=== PATIENT | male | born 1960 | race African-American/Black ===

== ENCOUNTER → 2019-12-09 07:57 | Outpatient (CLI) | payer MEDICARE, BC, SELFPAY ==
[2019-12-09] VITALS (7 sets, daily range): BP systolic 129–180; BP diastolic 68–84; PULSE 79–91; RESP 16; TEMP 36.3–37.2; O2SAT 94–100; BMI 25.1
== END ==
PROVIDERS: Referring Provider Internal Medicine Nephrology; Visit Provider Internal Medicine Nephrology
DX: D64.9 Anemia, unspecified (principal)
CPT/HCPCS: 36415; 36430; 86850; 86900; 86901; 86920; 86922; J7040; P9016; A4216

== ENCOUNTER → 2019-12-17 11:15 | Outpatient (CLI) | payer MEDICARE, BC, SELFPAY ==
[2019-12-09 08:08] VITALS: BMI 25.1
== END ==
LOC: MTDU 11:16
PROVIDERS: PCP Family Medicine; Referring Provider Internal Medicine Gastroenterology; Visit Provider Internal Medicine Gastroenterology
DX: Z11.59 Encounter for screening for other viral diseases (principal)
CPT/HCPCS: 87635; 94799; U0003

== ENCOUNTER 2020-07-03 15:27 | Emergency (ER) | payer MEDICARE, BC, SELFPAY ==
[2019-12-09 08:08] VITALS: BMI 25.1
[2020-07-03 15:28] VITALS: BP 225/120; PULSE 121; RESP 29; TEMP 36.8; O2SAT 95; BMI 22.3
[2020-07-03 15:36] LABS: Bedside Glucose 151 mg/dL (70-110)
--- NOTE | 2020-07-03 15:52 | ED.DCSUM_ITS ---
History of Present Illness Chief Complaint: Nausea/Vomiting Informant: Patient Onset: Today Context: Sudden Onset Timing: Continuous Current Severity: Moderate Maximum Severity: Moderate Narrative: The patient is a 59-year-old male with medical history significant for hypertension, end-stage renal disease on peritoneal dialysis, who presents to the emergency department from dialysis. The patient was diagnosed with peritonitis. He has been getting ceftaz infusions after he completes dialysis. He went to dialysis today and got his full treatment. He states that he had his antibiotics infused. He states that normally after he gets his antibiotics, he will have nausea and vomiting. He states that this causes his blood pressure to go very high. He denies fevers or chills. He states he has been evaluated multiple times for his vomiting. He states he was able to complete his treatment. He states he also some tingling in both of his feet which is since resolved. Prior similar symptoms: Yes Recent Illness/Hospitalization: Yes Past Medical History - Allergies and Home Meds Allergies/Adverse Reactions: Allergies No Known Allergies Allergy (Verified 12/09/19 08:12) Primary Care Physician: Beto Bernal MD [Primary Care Provider] - Prior records reviewed: Yes Past Medical History: - - End-stage renal disease, hypertension, diabetes Surgical History: - - Peritoneal dialysis catheter Smoking Status: Never smoker Review of Systems General: Denies: Chills, Fever, Sweats Eyes: Denies: Visual changes - bilaterally, Diplopia ENT: Denies: Rhinorrhea, Sore throat Cardiovascular: Denies: Chest pain, Palpitations Respiratory: Denies: Dyspnea, Cough, Dyspnea on exertion Gastrointestinal: Reports: Nausea, Vomiting. Denies: Abdominal pain, Diarrhea, Melena, Hematochezia Genitourinary: Denies: Dysuria, Hematuria, Frequency Musculoskeletal: Denies: Back pain, Extremity Pain Skin: Denies: Rash, Wounds Neurological: Denies: Headache, Weakness, Numbness Physical Exam Vital Signs/Narrative: Vital Signs Temp Pulse Resp BP Pulse Ox 07/03/20 15:28 98.2 F 121 H 29 H 225/120 H 95 Inital Vital Signs reviewed: Yes General: Well nourished, Well developed, No Acute Distress Head: Normocephalic, Atraumatic Eyes: Perrl, EOMI ENT: Moist mucous membranes, No rhinorrhea Neck: Supple, Nontender Cardiovascular: Regular rate, Regular rhythm, No murmurs Respiratory: No distress, CTA bilaterally, Chest nontender Abdomen: Soft, Nontender, Nondistended, Normal bowel sounds Back: Nontender, Normal Inspection Extremities: Nontender, No edema Skin: Normal color, No rash Neurological: Alert, Oriented x3, Cranial nerves II-XII grossly intact, Normal Strength, Normal Sensation Psychological: Normal affect, Normal Mood Diagnostic/Tx/Re-eval Abnormal Lab Results 07/03/20 07/03/20 07/03/20 15:33 15:48 15:48 WBC 8.4 RBC 4.09 L Hgb 11.4 L Hct 38.1 L MCV 93.2 MCH 27.9 MCHC 29.9 L RDW Std Deviation 54.0 H RDW Coeff of Sudhir 15.9 H Plt Count 353 MPV 11.2 Immature Gran % (Auto) 0.500 Neut % (Auto) 76.0 H Lymph % (Auto) 15.1 L [place] % (Auto) 6.7 Eos % (Auto) 1.0 Baso % (Auto) 0.7 Absolute Neuts (auto) 6.4 Absolute Lymphs (auto) 1.27 Nucleated RBC % 0 Sodium 134 L Potassium 3.7 Chloride 91 L Carbon Dioxide 26.0 Anion Gap 17 H BUN 35 H Creatinine 15.10 H* Estim Creat Clear Calc 5.19 Est GFR (MDRD) Af Amer 4 L Est GFR (MDRD) Non-Af 4 L BUN/Creatinine Ratio 2.3 L Glucose 235 H Calcium 9.8 Total Bilirubin 0.50 AST 12 L ALT 23 Alkaline Phosphatase 105 Total Protein 8.4 H Albumin 3.5 Globulin 4.9 H Albumin/Globulin Ratio 0.7 L POC Glucose 151 H - Medical Decision Making Patient presents with nausea and vomiting after his peritoneal dialysis. He states this is a recurrent issue especially when he gets his antibiotic infusions. His abdomen is soft and nontender. He is not had a fever. He is at 5 full days of treatment already. The patient is well-appearing. He was concerned about these paresthesias in his feet, but he has normal pulses, good cap refill, no skin breakdown. The patient was given Dilaudid and Reglan. He had marked improvement of his symptoms and is resting comfortably. His blood pressure and heart rate have improved. I did obtain screening labs. Patient has chronic anemia. He has no leukocytosis. His renal function is at his baseline. The patient's repeat blood pressure is 146/80. His heart rate is now 90. He is totally asymptomatic. At this point, I do feel that he is safe for discharge. Impression 1. Nausea vomiting 2. End-stage renal disease on dialysis ED Disposition - Plan for ED Patient: Instructions: ED Vomiting (Adult) Referrals: Beto Bernal MD [Primary Care Provider] -
[2020-07-03 16:03] LABS: Absolute Lymphocyte Count 1.27 X10^3/uL (0.83-4.51); Absolute Neutrophil Count 6.4 X10^3/uL (2.0-7.7); Basophil# 0.06 X10^3/uL; Basophil% 0.7 % (0-1); Eosinophil# 0.08 X10^3/uL; Hematocrit 38.1 % (40-54); Hemoglobin 11.4 g/dL (13.0-16.5); Lymphocyte # 1.27 X10^3/ul (4.0); Lymphocyte % 15.1 % (19-41); Mean Corp Hgb Conc 29.9 g/dL (32-36); Mean Corpuscular Hgb 27.9 pg (27.0-32.0); Mean Corpuscular Volume 93.2 fL (80-94); Mean Platelet Vol. 11.2 fl (6.2-12.0); Monocyte# 0.56 X10^3/uL; Monocyte% 6.7 % (0-10); NRBC Flagged by Analyzer 0 % (0-5); Platelet Count 353 K/mm3 (150-450); RBC Distribution Width CV 15.9 % (11.6-14.6); Red Blood Count 4.09 M/mm3 (4.6-6.2); White Blood Count 8.4 K/mm3 (4.4-11.0)
[2020-07-03] MEDS: Metoclopramide 10 MG/2 ML Vial IV (16:08)
[2020-07-03] MEDS: HYDROmorphone 1 MG/ML Syringe IV (16:08)
[2020-07-03 16:26] LABS: ALB/GLOB Ratio 0.7 RATIO (0.9-2.4); AST(SGOT) 12 U/L (15-37); Alanine Aminotransfer ALT/SGPT 23 U/L (16-61); Albumin, Serum 3.5 g/dL (3.2-5.0); Alkaline Phosphatase 105 U/L (45-117); Anion Gap 17 (5-15); BUN 35 mg/dL (7-18); BUN/Creat Ratio 2.3 RATIO (10-20); Calcium,Total 9.8 mg/dL (8.5-10.1); Chloride 91 mmol/L (98-107); EST Glomerular Filtration Rate 4 mL/min (>60); Est Glom Filt Rate - Afr Amer 4 mL/min (>60); Estimated Creatinine Clearance 5.19 ml/min; Globulin 4.9 g/dL (2.2-4.2); Glucose 235 mg/dL (74-106); Potassium 3.7 mmol/L (3.5-5.1); Protein, Total 8.4 g/dL (6.4-8.2); Sodium Level 134 mmol/L (136-145)
[2020-07-03 16:58] VITALS: BP 149/87; PULSE 100; RESP 13; O2SAT 96
== END 2020-07-03 17:20 | disposition home or self-care (01) ==
LOC: ED 16:07
PROVIDERS: Emergency Provider Emergency Medicine; PCP Family Medicine
DX: R11.2 Nausea with vomiting, unspecified (principal); I12.0 Hypertensive chronic kidney disease with stage 5 chronic kidney disease or end stage renal disease; E11.22 Type 2 diabetes mellitus with diabetic chronic kidney disease; N18.6 End stage renal disease; Z99.2 Dependence on renal dialysis
CPT/HCPCS: 80053; 82962; 85025; 96374; 96375; 99284

== ENCOUNTER 2021-06-25 09:26 | Emergency (ER) | payer MEDICARE, MEDICAID, SELFPAY ==
[2021-06-25 09:27] VITALS: BP 136/70; PULSE 62; RESP 18; TEMP 35.8; BMI 23.1
--- NOTE | 2021-06-25 10:02 | EX.ED.DYSGE1 ---
HPI History of Present Illness Chief Complaint: Hypotension Narrative Narrative: Patient is asymptomatic. He tells me he does not feel any different. He was transported to dialysis where he was found to have a low blood pressure. He was given a liter fluids and his blood pressure is now back to normal. He is denying any fevers chills cough or congestion. He has no abdominal pain. 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 He has not had any new issues with his foot no worsening pain or drainage or any other issues. He is denying shortness of breath. Today is Friday last dialysis was Friday. [facility] Medical History Anemia End stage renal disease Hyperparathyroidism Kidney disease Peritonitis Renal dialysis device, implant, or graft complication Home Medications B complex with C 20-folic acid [Nephrocaps] 1 cap PO DAILY 06/25/21 [History Last Taken Unknown] acetaminophen 1,000 mg PO Q8H PRN 06/25/21 [History Last Taken Unknown] amlodipine 5 mg PO DAILY 06/25/21 [History Last Taken Unknown] aspirin [Aspir-81] 81 mg PO DAILY 06/25/21 [History Last Taken Unknown] cilostazol 100 mg PO BID 06/25/21 [History Last Taken Unknown] clonidine HCl 0.1 mg PO TID 06/25/21 [History Last Taken Unknown] clopidogrel [Plavix] 75 mg PO DAILY 06/25/21 [History Last Taken Unknown] docusate sodium [Colace] 100 mg PO BID PRN PRN 06/25/21 [History Last Taken Unknown] ferric citrate 420 mg PO TID 06/25/21 [History Last Taken Unknown] gabapentin 300 mg PO QHS 06/25/21 [History Last Taken Unknown] insulin glargine [Lantus Solostar U-100 Insulin] 12 unit SUBCUT BREAKFAST 06/25/21 [History Last Taken Unknown] insulin lispro [Humalog Pen] 0 unit SUBCUT TID 06/25/21 [History Last Taken Unknown] labetalol 100 mg PO BID 06/25/21 [History Last Taken Unknown] nitroglycerin 0.4 mg SUBLINGUAL Q5M PRN 06/25/21 [History Last Taken Unknown] polyethylene glycol 3350 [Miralax] 17 g PO DAILY PRN PRN 06/25/21 [History Last Taken Unknown] tamsulosin 0.4 mg PO DAILY 06/25/21 [History Last Taken Unknown] Allergy/AdvReac Type Severity Reaction Status Date / Time No Known Allergies Allergy Verified 06/25/21 09:35 Social History Smoking Status: Never smoker ROS ROS ED ROS Narrative Past medical history: Reviewed, includes diabetes, hypertension, end-stage renal disease and peripheral vascular disease Medications: Reviewed Social history: Noncontributory Review of systems: All systems negative except as indicated General: No fever Eyes: No visual changes ENT: No upper airway congestion, normal voice Neck: No neck pain Cardiovascular: No chest pain Respiratory: No shortness of breath or cough Gastrointestinal: No abdominal pain, nausea vomiting or diarrhea Musculoskeletal: Right foot pain has not changed. Skin: No new rash Neurological: No memory loss, confusion or any focal weakness Psych: No recent behavioral changes Hematologic: No easy bleeding or easy bruising EXAM Physical Exam Narrative Exam Narrative: Physical exam General: Patient appears chronically ill but does not appear in any distress. Head: Normocephalic, Atraumatic Eyes: Conjunctiva not pale ENT: Slightly dry mucous membranes Neck: Supple, Nontender, No lymphadenopathy Cardiovascular: Regular rate, Regular rhythm Chest wall: Right sided dialysis catheter in place. Respiratory: No distress, CTA bilaterally Abdomen: Soft, Nontender, Nondistended Back: Nontender, Normal Inspection. Negative for: CVA tenderness Extremities: He does have a healing right arm fistula with just a slight thrill. Right foot is dressed but no evidence of seeping erythema or calor or cellulitis. There is bilateral edema. Skin: Normal color, No rash Neurological: Alert, Normal Strength, Normal Sensation Psychological: Normal affect Const Vital Signs: 06/25/21 09:27 06/25/21 10:30 06/25/21 11:25 Temperature 96.5 F L Temperature Source Temporal Pulse Rate 62 84 Respiratory Rate 18 16 Respiratory Effort Normal Respiratory Pattern Normal Blood Pressure 136/70 H 127/69 H Blood Pressure Mean 92 88 Pulse Ox 98 Oxygen Delivery Method Room Air MDM MDM MDM Narrative Medical decision making narrative: Patient has a normal potassium. His x-ray is unremarkable. He did get 1 hour of dialysis this morning. He likely was dehydrated he wants to be discharged. At this time I do not see any evidence of infection I will discharge him in stable condition. Lab Data Labs: Laboratory Results - last 24 hr 06/25/21 11:20 Sodium 132 L Potassium 4.8 Chloride 100 Carbon Dioxide 20.0 L Anion Gap 12 BUN 48 H Creatinine 8.60 H* Estim Creat Clear Calc 9.31 Est GFR (MDRD) Af Amer 8 L Est GFR (MDRD) Non-Af 7 L BUN/Creatinine Ratio 5.6 L Glucose 99 Calcium 8.4 L Total Bilirubin Cancelled AST Cancelled ALT Cancelled Alkaline Phosphatase Cancelled Total Protein Cancelled Albumin Cancelled Globulin Cancelled Albumin/Globulin Ratio Cancelled Radiography Diagnostic Testing: Clinical Impression(s) from Imaging Studies Chest X-Ray 06/25/21 10:15 IMPRESSION: No acute abnormality is seen. Electronically Signed: Santos Dennis MD at 10:42 EST Reading Location ID and State: [address] [place] [address] , Service support , Discharge Plan Triage Chief Complaint: Hypotension ED Provider: Stevie Campos Dx/Rx/DC Orders Clinical Impression: Dehydration, End stage chronic kidney disease Instructions: Dehydration Prescriptions: No Action cilostazol 100 mg Tablet 100 mg PO BID RF: 0 clonidine HCl 0.1 mg Tablet 0.1 mg PO TID RF: 0 polyethylene glycol 3350 [Miralax] 17 gram Powder In Packet 17 g PO DAILY PRN PRN (Reason: constipation) RF: 0 clopidogrel [Plavix] 75 mg Tablet 75 mg PO DAILY RF: 0 amlodipine 5 mg Tablet 5 mg PO DAILY RF: 0 aspirin [Aspir-81] 81 mg Tablet,Delayed Release (Dr/Ec) 81 mg PO DAILY RF: 0 acetaminophen 500 mg Tablet 1,000 mg PO Q8H PRN (Reason: pain/fever) RF: 0 tamsulosin 0.4 mg Capsule 0.4 mg PO DAILY RF: 0 nitroglycerin 0.4 mg Tablet, Sublingual 0.4 mg SUBLINGUAL Q5M PRN (Reason: Chest Pain) RF: 0 docusate sodium [Colace] 100 mg Capsule 100 mg PO BID PRN PRN (Reason: Constipation) RF: 0 Nephrocaps 1 mg Capsule 1 cap PO DAILY RF: 0 labetalol 100 mg Tablet 100 mg PO BID RF: 0 insulin lispro [Humalog Pen] 100 unit/mL Insulin Pen 0 unit SUBCUT TID RF: 0 gabapentin 300 mg Tablet 300 mg PO QHS RF: 0 Lantus Solostar U-100 Insulin 100 unit/mL (3 mL) Insulin Pen 12 unit SUBCUT BREAKFAST RF: 0 ferric citrate 210 mg iron Tablet 420 mg PO TID RF: 0 Primary Care Provider: David Lechuga Referrals: David Lechuga DO [Primary Care Provider] - 2 Days Disposition Disposition: Home, Self Care
--- NOTE | 2021-06-25 10:15 | RAD_ITS ---
STUDY: X-RAY CHEST REASON FOR EXAM: Male, 60 years old. Fluid overload TECHNIQUE: Single AP portable view of the chest. COMPARISON: None. FINDINGS: A right sided double lumen catheter is seen with the tip in the right atrium. The lungs are clear and expanded. There is no demonstrated pleural abnormality. Normal size heart. Normal mediastinum and rocky. Normal visualized pulmonary arteries. There is atherosclerotic tortuosity of the aortic arch and descending thoracic aorta. There are diffuse degenerative changes of the visualized thoracic spine. Normal visualized ribs, clavicles, and shoulders. There is no demonstrated abnormality of the visualized soft tissue structures of the upper abdomen. RAD/Chest 1 View (Portable) IMPRESSION: No acute abnormality is seen. Electronically Signed: Santos Dennis MD at 10:42 EST ,
--- NOTE | 2021-06-25 11:23 | ED.RN ---
called dialysis reported pt had hour of dialysis. pt refusing blood work. did allow nurse one atttempted able get only minute amount of blood. dr reports need potassium the most if can just draw that.
[2021-06-25 11:25] VITALS: BP 127/69; PULSE 84; RESP 16; O2SAT 98
[2021-06-25 11:50] LABS: Anion Gap 12 (5-15); BUN 48 mg/dL (7-18); BUN/Creat Ratio 5.6 RATIO (10-20); Calcium,Total 8.4 mg/dL (8.5-10.1); Chloride 100 mmol/L (98-107); EST Glomerular Filtration Rate 7 mL/min (>60); Est Glom Filt Rate - Afr Amer 8 mL/min (>60); Estimated Creatinine Clearance 9.31 ml/min; Glucose 99 mg/dL (74-106); Potassium 4.8 mmol/L (3.5-5.1); Sodium Level 132 mmol/L (136-145)
[2021-06-25 12:04] VITALS: BP 136/84; PULSE 79; RESP 17; O2SAT 96
--- NOTE | 2021-06-25 12:14 | ED.RN ---
transport will be here in 2 hours for [place] back to [facility]. lunch tray ordered for pt
== END 2021-06-25 15:04 | disposition home or self-care (01) ==
PROVIDERS: Emergency Provider Emergency Medicine; PCP Student in an Organized Health Care Education/Training Program; Visit Provider Emergency Medicine
DX: E86.0 Dehydration (principal); E11.51 Type 2 diabetes mellitus with diabetic peripheral angiopathy without gangrene; Z99.2 Dependence on renal dialysis; E11.22 Type 2 diabetes mellitus with diabetic chronic kidney disease; I12.0 Hypertensive chronic kidney disease with stage 5 chronic kidney disease or end stage renal disease; N18.6 End stage renal disease; Z79.4 Long term (current) use of insulin; I95.9 Hypotension, unspecified; Z79.02 Long term (current) use of antithrombotics/antiplatelets; Z79.899 Other long term (current) drug therapy; Z79.82 Long term (current) use of aspirin
CPT/HCPCS: 71045; 80048; 99284; A4216